=== PATIENT | female | born 1980 | race Caucasian/White ===

== ENCOUNTER 2022-06-06 08:46 | Emergency (ER) | payer MEDICAID ==
[~2022-06-06] VITALS: Ht 160 cm; Wt 56.7 kg
[2022-06-06 08:50] VITALS: BP_SYST 140
--- NOTE | 2022-06-06 08:50 | NUR ---
Placed in room 2 . Placed on air sampling and monitoring, blood pressure machine and pulse oximeter. To gown for exam. Side rails up. Report given to CORBIN ANDERSON.
--- NOTE | 2022-06-06 08:53 | NUR ---
Patient to ed at this time with c/o walking through the park, "I saw colors and felt dizzy and I don't remember anything else". Patient states she has history of seizures 10 years ago and felt the same [address]. patient states she does not take medications for seizures. patient awake alert and oriented x 3, denies pain, vss at this time. blood sugar 107
--- NOTE | 2022-06-06 09:01 | NUR ---
MD at bedside to see patient at this time
[2022-06-06] MEDS ORDERED: levETIRAcetam 1,000 MG in NS 90 ML IV ONE (09:15)
[2022-06-06 09:32] LABS: BASOPHILS % (AUTO) 0.5 % (0.0-2.0); EOSINOPHILS # (AUTO) 0.1 K/uL (0.0-0.4); EOSINOPHILS % (AUTO) 0.5 % (0.0-4.0); HEMATOCRIT 34.5 % (36-48); HEMOGLOBIN 12.2 g/dL (12.0-16.0); LYMPHOCYTES % (AUTO) 19.1 % (20.5-51.5); MEAN CORPUSCULAR HEMOGLOBIN 33 pg (27-31); MEAN CORPUSCULAR HGB CONC 35 % (32-36); MEAN CORPUSCULAR VOLUME 93 fL (79.0-98.0); MONOCYTES # (AUTO) 0.5 K/uL (0.0-1.0); MONOCYTES % (AUTO) 4.6 % (1.7-9.3); NEUTROPHILS % (AUTO) 75.3 % (40.0-70.0); PLATELET COUNT (AUTO) 228 K/uL (130-430); RED BLOOD CELL COUNT(AUTO) 3.72 MIL/uL (4.2-6.2); RED CELL DISTRIBUTION WIDTH 12.6 % (9.0-15.0); WHITE BLOOD COUNT (AUTO) 10.7 K/uL (4.8-10.8)
--- NOTE | 2022-06-06 09:42 | NUR ---
keppra 1000mg in ns up and infusing on iv pump at 200cc/hr. patient tolerating. seizure precautions maintained.
[2022-06-06 10:11] LABS: CALCIUM 8.7 mg/dL (8.4-11.0); CREATININE 0.58 mg/dL (0.55-1.30); POTASSIUM 3.7 mmol/L (3.5-5.1)
[2022-06-06 10:16] LABS: ALBUMIN 3.6 g/dL (3.4-4.8); TOTAL BILIRUBIN 0.3 mg/dL (0.0-1.0)
[2022-06-06] MEDS ORDERED: LEVE500T9 PO (10:20)
--- NOTE | 2022-06-06 12:08 | NUR ---
patient condition goes unchanged, vss, no seizure activity noted, will continue to maintain comfort and seizure precautions.
[2022-06-06] MEDS ORDERED: IBUPROFEN 600 MG TABLET PO ONE (13:00)
[2022-06-06 13:33] VITALS: BP_SYST 106
--- NOTE | 2022-06-06 13:33 | NUR ---
Patient given written and verbal discharge instructions and verbalizes understanding. ER MD discussed with patient the results and treatment provided. Patient in stable condition. ID arm band removed. IV catheter removed intact and dressing applied, no active bleeding. Rx of given. Patient educated on pain management and to follow up with PMD. Pain Scale . Opportunity for questions provided and answered. Medication side effect fact sheet provided.
== END 2022-06-06 13:36 | disposition home or self-care (01) ==
LOC: SED 08:46
DX: R56.9 Unspecified convulsions (principal); Z79.899 Other long term (current) drug therapy
CPT/HCPCS: 99284; 96365; 80053; 85025; 36415; J1953